=== PATIENT | female | born 1995 | race Caucasian/White ===

== ENCOUNTER 2017-03-12 10:07 | Outpatient (CLI) | payer BC ==
[2017-03-12 11:43] LABS: #Basophils 0.1 thou/uL (0.0-0.2); #Eosinphils 0.2 thou/uL (0.0-0.7); #Lymphocytes 2.4 thou/uL (1.20-3.40); #Monocytes 0.8 thou/uL (0.11-0.59); #Neutrophils 5.3 thou/uL (1.40-6.50); %Basophils 0.9 % (0.0-1.0); %Lymphocytes 26.8 % (21.0-51.0); %Monocytes 9.4 % (0.0-10.0); %Neutrophils 60.9 % (42.0-75.0); Hemoglobin 10.5 g/dL (12.0-16.0); Mean Corpuscular HGB CONC 32.6 g/dL (32.0-36.0); Mean Corpuscular Hemoglobin 26.7 pg (27.0-31.0); Platelet Count 227 thou/uL (130-400); RBC Distribution Width 13.6 % (11.5-14.5); Red Blood Cell (RBC) Count 3.94 mill/uL (4.20-5.40); White Blood Cell (WBC) Count 8.8 thou/uL (4.8-10.8)
[2017-03-12 11:55] LABS: ALT (SGPT) 7 U/L (8-55); AST (SGOT) 12 U/L (5-34); Alkaline Phosphatase 71 U/L (40-150); Anion Gap 12 mmol/L (10-20); BUN (Urea Nitrogen) 6 mg/dL (7.0-18.7); Bilirubin, Total 0.4 mg/dL (0.2-1.2); Calc. Creatinine Clearance 0 mL/min (70-130); Carbon Dioxide 25 mmol/L (22-29); Chloride 103 mmol/L (98-107); Estimated GFR-MDRD Greater than 90; Globulin 3.2 g/dL (2.4-3.5); Glucose 82 mg/dL (70-105); Potassium 3.9 mmol/L (3.5-5.1); Protein, Total 7.2 g/dL (6.0-8.3); Sodium 136 mmol/L (136-145)
[2017-03-12 12:37] LABS: Thyroid Stimulating Hormone 0.1349 uIU/mL (0.35-4.94)
[2017-03-12 18:04] LABS: Iron 35 ug/dL (50-170)
[2017-03-12 18:23] LABS: Ferritin 7.33 ng/mL (10-291)
== END 2017-03-12 10:08 | disposition home or self-care (01) ==
LOC: NAV LAB 10:07
PROVIDERS: ATTEND Family Medicine
DX: Z32.01 Encounter for pregnancy test, result positive (principal); D50.9 Iron deficiency anemia, unspecified
CPT/HCPCS: 36415; 80053; 82728; 83540; 84443; 84702; 85025

== ENCOUNTER 2017-11-26 15:32 | Outpatient (CLI) | payer BC ==
--- NOTE | 2017-11-26 16:13 | RAD ---
THREE VIEWS OF THE SACRUM AND COCCYX: 11/26/17 INDICATION: Coccygeal pain. FINDINGS: No displaced sacrococcygeal fracture is evident. SI joints are normal. Small phleboliths seen within the lower hemipelvis. IMPRESSION: No acute osseous abnormality. POS: TIFFANIE
--- NOTE | 2017-11-26 16:19 | RAD ---
THREE VIEWS LUMBAR SPINE 11/26/17 HISTORY: Coccygeal pain. Pain to lumbar spine, tailbone. Patient fell three days ago. FINDINGS: There are five nonribbearing lumbar type vertebral bodies. There is mild narrowing of the L5-S1 inter vertebral disc space. Remainder of the intervertebral disc spaces as well as vertebral body heights a re within normal limits. Phleboliths overlie the pelvis. IMPRESSION: No fracture or subluxation involving the lumbar spine. POS: CLAUDIA
== END 2017-11-26 15:33 | disposition home or self-care (01) ==
LOC: NAV RAD 15:32
PROVIDERS: ATTEND Family Medicine
DX: M53.3 Sacrococcygeal disorders, not elsewhere classified (principal)
CPT/HCPCS: 72100; 72220

== ENCOUNTER 2023-08-17 10:59 | Emergency (ER) | payer BC ==
[2023-08-17] MEDS ORDERED: Lidocaine 1% (PF) 30 ML VIAL ONE (12:11)
[2023-08-17] MEDS ORDERED: Bacitracin 1 PK ONE (12:51)
== END 2023-08-17 13:04 | disposition home or self-care (01) ==
LOC: NAV ERS 10:59
DX: S61.412A Laceration without foreign body of left hand, initial encounter (principal); W26.0XXA Contact with knife, initial encounter
CPT/HCPCS: 12002; J2001